=== PATIENT | female | born 1990 | race Caucasian/White ===

== ENCOUNTER → 2016-08-08 | Outpatient (CLI) | payer OTHER ==
--- NOTE | 2016-08-11 15:22 | REP ---
MRI right shoulder without contrast followed by with contrast: History: Right shoulder pain. MRI without contrast dated August 01, 2016 from [facility] showed a fat containing lesion in the humeral head question intraosseous lipoma. Postcontrast imaging was recommended. Comparison is made with radiographs from July 30, 2016. Report was delayed pending retrieval of these recent prior studies. Technique: Axial, oblique coronal and oblique sagittal imaging planes were utilized. T1 and T2-weighted sequences are included with and without fat saturation. Gadolinium enhancement dose is 13 mL of intravenous ProHance. Post gadolinium enhanced MR imaging is included. MRI findings: Cortical and medullary bone signal intensity are felt to be normal. There is an area of fat replaced normal marrow in the superolateral aspect of the humeral head. There is some cellular marrow change otherwise more less diffusely in the proximal humerus. This is not felt to be a lipomatous lesion but rather areas of normal fat replaced acellular marrow. There is minimal hypertrophy at the superior aspect of the AC joint. There is no evidence of glenohumeral or bursal fluid collection. The infraspinatus, subscapularis, and biceps tendons are intact. There is mild tendonitis tendinosis change in the distal supraspinatus tendon. No focal rotator cuff tear is seen. Anterior, posterior and superior labral cartilage appears intact. No cartilaginous defect is seen. No juxtaarticular cyst or mass is observed. Postcontrast images show no abnormal gadolinium enhancement. Impression: 1. AC joint hypertrophy consistent with early osteoarthritis. 2. Tendonitis tendinosis change in the supraspinatus tendon. 3. There is an area of normal fat replaced marrow in the superior humeral head surrounded by cellular marrow. No significant bony lesion is seen. Signed by Mor Ugarte MD 08/11/2016 03:24 P
== END | disposition home or self-care (01) ==
LOC: M RAD 10:35
PROVIDERS: ATTEND Physician Assistant
DX: M25.511 Pain in right shoulder (principal); M19.011 Primary osteoarthritis, right shoulder; M75.31 Calcific tendinitis of right shoulder
CPT/HCPCS: 73223; A9576

== ENCOUNTER 2017-07-21 09:41 | Emergency (ER) | payer OTHER ==
[2017-07-21 11:33] LABS: HEMATOCRIT 29.3 % (36.0-47.0); HEMOGLOBIN 10.6 g/dl (12.0-16.0); MEAN CORPUSCULAR HEMOGLOBIN 32.1 pg (27.0-33.0); MEAN CORPUSCULAR HGB CONC 36.2 g/dl (32.0-36.5); MEAN CORPUSCULAR VOLUME 88.8 fl (80.0-96.0); PLATELET COUNT, AUTOMATED 167 10^3/uL (150-450); RED CELL DISTRIBUTION WIDTH 12.8 % (11.5-14.5); WHITE BLOOD COUNT 8.9 10^3/uL (4.0-10.0)
== END 2017-07-21 11:25 | disposition admitted as inpatient to this hospital (09) ==
LOC: M ED 09:41
DX: O9A.213 Injury, poisoning and certain other consequences of external causes complicating pregnancy, third trimester (principal); S30.0XXA Contusion of lower back and pelvis, initial encounter; Z79.899 Other long term (current) drug therapy; Z88.8 Allergy status to other drugs, medicaments and biological substances; W00.9XXA Unspecified fall due to ice and snow, initial encounter; Y92.009 Unspecified place in unspecified non-institutional (private) residence as the place of occurrence of the external cause; Z3A.28 28 weeks gestation of pregnancy
CPT/HCPCS: 85027

== ENCOUNTER 2017-07-21 11:28 | Outpatient (CLI) | payer OTHER | END 2017-07-21 16:45 | disposition home or self-care (01) | LOC: M LDO 11:28 | DX: O99.89 Other specified diseases and conditions complicating pregnancy, childbirth and the puerperium (principal); Z3A.29 29 weeks gestation of pregnancy; W10.9XXA Fall (on) (from) unspecified stairs and steps, initial encounter; Z88.8 Allergy status to other drugs, medicaments and biological substances | CPT/HCPCS: 59025 ==

== ENCOUNTER 2017-09-29 01:30 | Inpatient (IN) | payer OTHER ==
[2017-09-29] MEDS ORDERED: OXYTOCIN 30 UNITS IN 0.9% NaCl 500ML IV BAG (J2590) As Ordered (03:03)
[2017-09-29 03:17] LABS: HEMATOCRIT 32.1 % (36.0-47.0); HEMOGLOBIN 11.4 g/dl (12.0-16.0); MEAN CORPUSCULAR HEMOGLOBIN 30.4 pg (27.0-33.0); MEAN CORPUSCULAR HGB CONC 35.5 g/dl (32.0-36.5); MEAN CORPUSCULAR VOLUME 85.6 fl (80.0-96.0); PLATELET COUNT, AUTOMATED 172 10^3/uL (150-450); RED BLOOD COUNT 3.75 10^6/uL (4.00-5.40); RED CELL DISTRIBUTION WIDTH 11.9 % (11.5-14.5); WHITE BLOOD COUNT 15.1 10^3/uL (4.0-10.0)
[2017-09-29] MEDS ORDERED: MORPHINE 10 MG/ML 1ML VIAL (J2270) As Ordered (03:43)
[2017-09-29] MEDS: MORPHINE 4 MG/ML 1ML VIAL (J2270) IV (03:53)
[2017-09-29] MEDS ORDERED: MEASLES,MUMPS,RUBELLA VACCINE INJ (MMR-II) (90707) SC (04:15)
[2017-09-29] MEDS ORDERED: METOCLOPRAMIDE INJ 10MG/2ML VIAL (J2765) IV (04:15)
[2017-09-29] MEDS ORDERED: METHYLERGONOVINE MALEATE 0.2 MG TAB PO (04:15)
[2017-09-29] MEDS ORDERED: RHOGAM 300 MCG (1500 IU) INJ (J2790) IM (04:15)
[2017-09-29] MEDS ORDERED: oxyCODONE 5MG TAB PO (04:15)
[2017-09-29] MEDS ORDERED: MOM 30ML SUSPENSION UDC PO (04:15)
[2017-09-29] MEDS ORDERED: PROMETHAZINE 25 MG TAB PO (04:15)
[2017-09-29] MEDS: IBUPROFEN 800 MG TAB PO ×2 (05:34→14:53)
[2017-09-29] MEDS ORDERED: PENICILLIN G POTASSIUM IV 2.5 MU in APPROPRIATE DILUENT 1 EA IV (06:45)
[2017-09-29] MEDS: ACETAMINOPHEN 500 MG TAB PO (12:00)
[2017-09-29] MEDS: LACTATED RINGER'S 1000 ML IV (20:45)
[2017-09-29] MEDS: PENICILLIN G POTASSIUM IV 5 MU in D5W MINI-BAG PLUS 100 ML IV (20:45)
[2017-09-29] MEDS: LIDOCAINE 1% MDV 20ML VIAL INFIL (20:45)
[2017-09-29] MEDS: OXYTOCIN DRIP 30 UNITS in APPROPRIATE DILUENT 1 EA IV (20:45)
[2017-09-29] MEDS: LR 1,000 ML IV ×5 (20:46→21:56)
[2017-09-29] MEDS: DOCUSATE SODIUM 100 MG CAP PO ×2 (21:43→21:44)
[2017-09-29] MEDS: PRENATAL VITAMINS CHEWABLE TABLET PO (21:56)
[2017-09-30] MEDS: IBUPROFEN 800 MG TAB PO ×2 (04:52→19:28)
[2017-09-30] MEDS: DOCUSATE SODIUM 100 MG CAP PO ×2 (08:15→19:28)
[2017-09-30] MEDS: PRENATAL VITAMINS CHEWABLE TABLET PO (08:15)
[2017-09-30] MEDS: LR 1,000 ML IV ×2 (10:43→18:43)
[2017-09-30] MEDS: ACETAMINOPHEN 500 MG TAB PO (11:52)
[2017-10-01] MEDS: IBUPROFEN 800 MG TAB PO (05:16)
[2017-10-01] MEDS: DOCUSATE SODIUM 100 MG CAP PO (07:51)
[2017-10-01] MEDS: PRENATAL VITAMINS CHEWABLE TABLET PO (07:51)
[2017-10-01] MEDS: DIBUCAINE 1% OINTMENT 30GM TOP (08:01)
== END 2017-10-01 10:25 | disposition home or self-care (01) | DRG 775 ==
LOC: M LDO 01:30 → M LDI 02:54 → M OBS 09:13
PROVIDERS: Student in an Organized Health Care Education/Training Program
PROC: 10E0XZZ Delivery of Products of Conception, External Approach (ICD-10-PCS; principal; 2017-09-29)
PROC: 0DQR0ZZ Repair Anal Sphincter, Open Approach (ICD-10-PCS; 2017-09-29)
PROC: 0KQM0ZZ Repair Perineum Muscle, Open Approach (ICD-10-PCS; 2017-09-29)
DX: O99.824 Streptococcus B carrier state complicating childbirth (principal); Z3A.39 39 weeks gestation of pregnancy; O70.20 Third degree perineal laceration during delivery, unspecified; O70.1 Second degree perineal laceration during delivery; Z37.0 Single live birth

== ENCOUNTER → 2018-08-12 | Outpatient (CLI) | payer OTHER ==
[~2018-08-12] MED LIST: COLA100C5 PO; DIBU10OI TOP; MAPA500T2 PO; MOM30SS PO; MOTR200T44 PO; MUCI60TA7 PO; PREN1TAB11 PO; PROT20TA11 PO
--- NOTE | 2018-08-14 06:44 | ECHO ---
DATE OF STUDY: 08/12/2018 REFERRING INDIVIDUAL: ROBINSON Vera INDICATION: Cardiac murmur unspecified. HEIGHT: 66 inches. WEIGHT: 145 pounds. 2D MEASUREMENTS: Aortic annulus: 2.0 cm Left ventricle diastole: 4.0 cm Ventricular septum: 0.68 cm Posterior wall: 3.8 cm Left atrium: 3.2 cm Aortic root: 2.9 cm Inferior vena cava 1.8 cm DOPPLER MEASUREMENTS: Aortic valve velocity: 126 cm/s LVOT velocity: 98.3 cm/s LVOT VTI: 20.5 cm Mild mitral regurgitation within normal limits Mitral E velocity: 83.4 cm/s Mitral A velocity: 50.4 cm/s Mitral deceleration time 215 milliseconds Very mild tricuspid regurgitation. Estimated right ventricle systolic pressure: 23 mmHg assuming a right atrial pressure of 5 mmHg Pulmonary artery systolic pressure: 19 mmHg MITRAL ANNULAR TISSUE DOPPLER: E prime septal: 11.4 cm/s E prime lateral: 14.1 cm/s DESCRIPTION: Rhythm was sinus. Image quality was fair. No pericardial effusion. This was a 2D, M-mode, color flow Doppler, and pulse wave Doppler examination and included mitral annular tissue Doppler. CONCLUSIONS: 1. Normal echocardiogram Doppler. 2. Normal left ventricle internal dimensions and wall thickness. Normal regional left ventricle (LV) motion and wall thickening. Normal LV systolic functioning. Left ventricular ejection fraction (LVEF) 60% by visual estimate. Normal LV diastolic dysfunction. 3. Normal cardiac valve. Very mild mitral regurgitation and very mild tricuspid regurgitation within normal limits.
== END ==
LOC: M CARPUL 10:04
PROVIDERS: ATTEND Nurse Practitioner
DX: R01.1 Cardiac murmur, unspecified (principal)